=== PATIENT | female | born 1980 | race Hispanic/Latino ===

== ENCOUNTER 2017-08-19 21:10 | Inpatient (IN) | payer BC ==
[~2017-08-19] VITALS: Ht 144.8 cm; Wt 146.0 kg
[2017-08-20] VITALS (13 sets, daily range): BP systolic 85–134; BP diastolic 45–78
[2017-08-20 00:37] LABS: BASOPHIL (%) 0.5 % (0-1); EOSINOPHIL (%) 2.6 % (0-5); EOSINOPHIL COUNT 0.2 K/uL (0-0.3); HEMATOCRIT 33.4 % (36.0-46.0); HEMOGLOBIN 10.8 G/DL (11.9-15.5); IMMATURE GRANULOCYTE (%) 0.7 % (0.0-0.7); LYMPHOCYTE (%) 24.6 % (15-42); LYMPHOCYTE COUNT 2.1 K/uL (1.0-2.8); MCH 29.7 PG (29.0-34.0); MCHC 32.3 G/DL (30.0-36.0); MCV 91.8 FL (83-99); MONOCYTE (%) 5.5 % (3-12); MONOCYTE COUNT 0.5 K/uL (0-0.8); NEUTROPHIL (%) 66.1 % (45-76); NEUTROPHIL COUNT 5.6 K/uL (1.8-6.4); PLATELET COUNT 452 K/uL (156-360); RBC DIS.WIDTH-CV 16.5 % (11.8-14.6); RBC DIS.WIDTH-SD 55.9 % (39-53); RED BLOOD COUNT 3.64 M/uL (3.80-5.20); WHITE BLOOD COUNT 8.5 K/uL (4.1-10.2)
[2017-08-20 00:45] LABS: ALBUMIN 1.9 g/dL (3.2-4.8); CHLORIDE 103 mEq/L (99-109); POTASSIUM 4.3 mEq/L (3.7-5.4); SODIUM 136 mEq/L (136-147)
[2017-08-20 00:47] LABS: GLUCOSE 109 mg/dL (70-99); TOTAL PROTEIN 4.6 g/dL (6.4-8.3)
[2017-08-20 00:49] LABS: TOTAL BILIRUBIN 0.2 mg/dL (0.0-1.0)
[2017-08-20 00:51] LABS: ALKALINE PHOSPHATASE 135 IU/L (3-129); CREATININE 1.6 mg/dL (0.6-1.3); GFR ESTIMATE (CALCULATED) 38 mL/min/
[2017-08-20 00:52] LABS: UREA NITROGEN (BUN) 66 mg/dL (9-23)
[2017-08-20 00:53] LABS: AST (GOT) 15 IU/L (2-34)
[2017-08-20 00:54] LABS: ALT (GPT) 20 IU/L (3-49)
[2017-08-20 02:33] LABS: APPEARANCE CLEAR ((CLEAR)); BILIRUBIN NEGATIVE; BLOOD NEGATIVE; COLOR YELLOW ((YELLOW)); GLUCOSE (STRIP) NEGATIVE; KETONES NEGATIVE; LEUKOCYTES TRACE; NITRITE NEGATIVE; PROTEIN (STRIP) NEGATIVE; SPECIFIC GRAVITY 1.016 (1.000-1.030); UROBILINOGEN 0.2 MG/DL (0.2-1.0)
[2017-08-20 02:37] LABS: BACTERIA NONE SEEN /HPF; EPITHELIAL CELLS NONE SEEN /HPF; MUCUS NONE SEEN /LPF; RED BLOOD CELLS 0-5 /HPF (0-5); UCUL ADDED? NO; WHITE BLOOD CELLS 0-5 /HPF (0-5)
[2017-08-20] MEDS ORDERED: OXYCODONE HCL5 MG PO (11:22)
[2017-08-20] MEDS ORDERED: AMPICILLIN SODIU2 GM IV (11:27)
[2017-08-20] MEDS ORDERED: MAGNESIUM400 M1 PO (11:30)
[2017-08-20] MEDS ORDERED: COLACE100 MG PO (11:31)
[2017-08-20] MEDS ORDERED: SENNA8.6 MG PO (11:32)
[2017-08-20] MEDS ORDERED: PANTOPRAZOLE SO40 MG PO (11:33)
[2017-08-20] MEDS ORDERED: K-DUR20 MEQ PO (11:34)
[2017-08-20] MEDS ORDERED: GABAPENTIN600 MG PO (11:35)
[2017-08-20] MEDS ORDERED: LASIX20 MG/2 ML IV (11:37)
[2017-08-20] MEDS ORDERED: OCEAN NASAL 0.645 ML BOTH NARES (11:37)
[2017-08-20] MEDS ORDERED: ATIVAN1 MG PO (11:38)
[2017-08-20] MEDS ORDERED: OXYCONTIN10 MG PO (11:39)
[2017-08-20] MEDS ORDERED: BISAC-EVAC10 MG PR (11:40)
[2017-08-20] MEDS ORDERED: ALUMINUM H320 MG/5 M PO (11:41)
[2017-08-20] MEDS ORDERED: BENZONATATE100 MG PO (11:44)
[2017-08-20] MEDS ORDERED: ACETAMINOPHEN325 M1 PO ×2 (11:45→11:46)
[2017-08-20] MEDS ORDERED: ASCORBIC ACID500 MG PO (11:47)
[2017-08-20] MEDS ORDERED: ARTIFICIAL TEAR15 M1 BOTH EYES (11:47)
[2017-08-20] MEDS ORDERED: MUCINEX600 MG PO (11:49)
[2017-08-20] MEDS ORDERED: CYANOCOBALAM1000 MCG PO (11:51)
[2017-08-20] MEDS ORDERED: LOVENOX40 MG/0.4 SC (11:53)
[2017-08-20] MEDS ORDERED: FOLIC ACID1 MG PO (11:54)
[2017-08-20] MEDS ORDERED: ALLERGY RELIE15.8 ML BOTH NARES (11:54)
[2017-08-20] MEDS ORDERED: TAB-A-VITE1 EACH PO (11:55)
[2017-08-20] MEDS ORDERED: ONDANSETRON HCL4 MG PO (11:56)
[2017-08-20 15:07] LABS: BASE EXCESS -6.3 mEq/L (-3 to +3); BICARBONATE 17.7 mEq/L (22-26); METHEMOGLOBIN 1.6 % (0-1.5); PCO2 30 mm Hg (35-45); PO2 86 mm Hg (80-100); pH 7.38 (7.35-7.45)
[2017-08-20 15:10] LABS: COMMENTS - BLOOD GASES C+; DEVICE RA; SITE LR; TOTAL RESP RATE 28 resp/min
[2017-08-20 18:33] LABS: BASOPHIL (%) 0.4 % (0-1); BASOPHIL COUNT 0.1 K/uL (0-0.1); EOSINOPHIL (%) 1.7 % (0-5); EOSINOPHIL COUNT 0.2 K/uL (0-0.3); HEMATOCRIT 32.7 % (36.0-46.0); HEMOGLOBIN 10.2 G/DL (11.9-15.5); IMMATURE GRANULOCYTE (%) 0.9 % (0.0-0.7); LYMPHOCYTE (%) 15.2 % (15-42); LYMPHOCYTE COUNT 2.1 K/uL (1.0-2.8); MCH 28.8 PG (29.0-34.0); MCHC 31.2 G/DL (30.0-36.0); MCV 92.4 FL (83-99); MONOCYTE (%) 5.3 % (3-12); MONOCYTE COUNT 0.7 K/uL (0-0.8); NEUTROPHIL (%) 76.5 % (45-76); NEUTROPHIL COUNT 10.7 K/uL (1.8-6.4); RBC DIS.WIDTH-CV 16.7 % (11.8-14.6); RED BLOOD COUNT 3.54 M/uL (3.80-5.20); WHITE BLOOD COUNT 13.9 K/uL (4.1-10.2)
[2017-08-20 18:38] LABS: INTER. NORMALIZED RATIO 1.4
[2017-08-20 18:39] LABS: PLATELET COUNT 624 K/uL (156-360)
[2017-08-20 18:40] LABS: PTT 24.3 SEC (25-37)
[2017-08-20 18:55] LABS: C4 COMPLEMENT 61 MG/DL (10-40)
[2017-08-20 19:29] LABS: THYROTROPIN (TSH) 4.9 MIU/L (0.4-5.5)
[2017-08-20 19:53] LABS: ALBUMIN 1.8 G/DL (3.2-4.8); ALKALINE PHOSPHATASE 105 IU/L (3-129); ALT (GPT) 15 IU/L (3-49); AMYLASE < 10 IU/L (1-118); AST (GOT) 15 IU/L (2-34); C-REACTIVE PROTEIN 76.3 MG/L (0-10); CHLORIDE 109 MEQ/L (99-109); GLUCOSE 102 mg/dL (70-99); LIPASE 10 U/L (1.0-51.0); MAGNESIUM 1.6 mg/dl (1.3-2.7); PHOSPHORUS 2.7 mg/dL (2.5-4.9); SODIUM 139 MEQ/L (136-147); TOTAL BILIRUBIN 0.3 MG/DL (0.0-1.0); TOTAL PROTEIN 5.1 G/DL (6.4-8.3); UREA NITROGEN (BUN) 51 mg/dL (9-23)
[2017-08-20 19:56] LABS: CREATININE 1.1 MG/DL (0.6-1.3); GFR ESTIMATE (CALCULATED) 59 mL/min/; POTASSIUM 3.3 MEQ/L (3.7-5.4)
[2017-08-21] VITALS (27 sets, daily range): BP systolic 76–130; BP diastolic 29–95
[2017-08-21 10:22] LABS: HEMOGLOBIN 10.6 G/DL (11.9-15.5); MCH 29.8 PG (29.0-34.0); MCHC 32.1 G/DL (30.0-36.0); MCV 92.7 FL (83-99); PLATELET COUNT 497 K/uL (156-360); RBC DIS.WIDTH-CV 17.1 % (11.8-14.6); RBC DIS.WIDTH-SD 58.4 % (39-53); RED BLOOD COUNT 3.56 M/uL (3.80-5.20)
[2017-08-21 10:51] LABS: CHLORIDE 111 MEQ/L (99-109); GFR ESTIMATE (CALCULATED) > 59 mL/min/; MAGNESIUM 1.4 mg/dl (1.3-2.7); PHOSPHORUS 2.1 mg/dL (2.5-4.9); POTASSIUM 3.5 MEQ/L (3.7-5.4); SODIUM 139 MEQ/L (136-147); UREA NITROGEN (BUN) 41 mg/dL (9-23)
[2017-08-21 10:58] LABS: GLUCOSE 224 mg/dL (70-99)
[2017-08-21 12:27] LABS: ANTI-DOUBLE STRANDED DNA 7 U/mL (0-99)
[2017-08-22] VITALS (20 sets, daily range): BP systolic 0–135; BP diastolic 0–101
[2017-08-22 05:50] LABS: HEMATOCRIT 27.9 % (36.0-46.0); HEMOGLOBIN 8.7 G/DL (11.9-15.5); MCH 29.5 PG (29.0-34.0); MCHC 31.2 G/DL (30.0-36.0); MCV 94.6 FL (83-99); PLATELET COUNT 367 K/uL (156-360); RBC DIS.WIDTH-CV 17.3 % (11.8-14.6); RED BLOOD COUNT 2.95 M/uL (3.80-5.20); WHITE BLOOD COUNT 6.5 K/uL (4.1-10.2)
[2017-08-22 06:12] LABS: CHLORIDE 113 MEQ/L (99-109); GFR ESTIMATE (CALCULATED) > 59 mL/min/; POTASSIUM 3.7 MEQ/L (3.7-5.4); SODIUM 142 MEQ/L (136-147); UREA NITROGEN (BUN) 35 mg/dL (9-23)
[2017-08-22 06:13] LABS: GLUCOSE 115 mg/dL (70-99)
[2017-08-22 12:16] LABS: DRVVT Mixing Study Interp Not Indicated (()); PTT-LA 36 sec (<=40); dRVVT Screen 42 sec (<=45)
[2017-08-22 18:42] LABS: PROCALCITONIN+ 0.51 ng/mL (<0.10)
[2017-08-23] VITALS: BP 130/77
[2017-08-23 02:00] VITALS: BP 91/61
[2017-08-23 04:00] VITALS: BP 105/74
[2017-08-23 06:00] VITALS: BP 107/78
[2017-08-23 08:00] VITALS: BP 120/91
[2017-08-23 10:00] VITALS: BP 123/88
[2017-08-24 00:08] LABS: SINGLE STRAND DNA ANTIBODY+ <69 U/mL (<230)
[2017-09-01] MEDS ORDERED: REGLAN5 MG PO (11:12)
== END 2017-08-23 13:34 | disposition designated cancer center or children's hospital (05) | DRG 853 ==
LOC: EME 21:10 → EDBD 21:10 → EME 08-20 03:16 → EDOF 08-20 03:16 → CANRESERV 08-20 03:17 → ENRESERV 08-20 03:17 → EDOF 08-20 05:08 → CANRESERV 08-20 05:10 → ENRESERV 08-20 05:10 → EDOF 08-20 08:04 → 4WEST 08-20 10:49 → EDOF 08-20 10:49 → ENRESERV 08-20 10:50 → EDOF 08-20 11:17 → ENRESERV 08-20 11:48 → 4WEST 08-20 13:23
PROVIDERS: Emergency Medicine; Internal Medicine; Internal Medicine Critical Care Medicine; Obstetrics & Gynecology; Specialist
PROC: 02HV33Z Insertion of Infusion Device into Superior Vena Cava, Percutaneous Approach (ICD-10-PCS; principal; 2017-08-19)
PROC: 05PY03Z Removal of Infusion Device from Upper Vein, Open Approach (ICD-10-PCS; 2017-08-21)
DX: A41.9 Sepsis, unspecified organism (principal); M32.9 Systemic lupus erythematosus, unspecified; E66.01 Morbid (severe) obesity due to excess calories; M86.9 Osteomyelitis, unspecified; L03.116 Cellulitis of left lower limb; R65.21 Severe sepsis with septic shock; J18.9 Pneumonia, unspecified organism; N39.0 Urinary tract infection, site not specified; I95.9 Hypotension, unspecified; F32.9 Major depressive disorder, single episode, unspecified; I12.9 Hypertensive chronic kidney disease with stage 1 through stage 4 chronic kidney disease, or unspecified chronic kidney disease; Y84.8 Other medical procedures as the cause of abnormal reaction of the patient, or of later complication, without mention of misadventure at the time of the procedure; N18.9 Chronic kidney disease, unspecified; L93.0 Discoid lupus erythematosus; G82.20 Paraplegia, unspecified; R00.0 Tachycardia, unspecified; R73.9 Hyperglycemia, unspecified; L89.319 Pressure ulcer of right buttock, unspecified stage; L89.159 Pressure ulcer of sacral region, unspecified stage; I31.3 Pericardial effusion (noninflammatory); D64.9 Anemia, unspecified; Z68.44 Body mass index [BMI] 60.0-69.9, adult; Z86.14 Personal history of Methicillin resistant Staphylococcus aureus infection; Z90.49 Acquired absence of other specified parts of digestive tract; Z79.82 Long term (current) use of aspirin; Z87.01 Personal history of pneumonia (recurrent); L89.154 Pressure ulcer of sacral region, stage 4
CPT/HCPCS: 36600; 71045; 74176; 80048; 80053; 80202; 81003; 82150; 82533 91; 82803; 82948; 83605; 83690; 83735; 84100; 84145 90; 84443; 85025; 85025 91; 85027; 85610; 85613 90; 85730; 85730 90; 86038; 86140; 86147 90; 86160; 86226 90; 86235; 87040; 87077; 87081; 87641; 99281; 99285; C1751; C9113; J0610; J0692; J1450; J1644; J1720; J1815; J2270; J2543; J3010; J3370; J3475; J3480; J7030; J7042; J7050; S0030

== ENCOUNTER 2017-08-29 10:14 | Emergency (ER) | payer BC ==
[~2017-08-29] VITALS: Ht 144.8 cm; Wt 146.0 kg
[~2017-08-29 10:14] MED LIST: ACETAMINOPHEN325 M1 PO; ALLERGY RELIE15.8 ML BOTH NARES; ALUMINUM H320 MG/5 M PO; AMPICILLIN SODIU2 GM IV; ARTIFICIAL TEAR15 M1 BOTH EYES; ASCORBIC ACID500 MG PO; ATIVAN1 MG PO; BENZONATATE100 MG PO; BISAC-EVAC10 MG PR; COLACE100 MG PO; CYANOCOBALAM1000 MCG PO; FOLIC ACID1 MG PO; GABAPENTIN600 MG PO; K-DUR20 MEQ PO; LASIX20 MG/2 ML IV; LOVENOX40 MG/0.4 SC; MAGNESIUM400 M1 PO; MUCINEX600 MG PO; OCEAN NASAL 0.645 ML BOTH NARES; ONDANSETRON HCL4 MG PO; OXYCODONE HCL5 MG PO; OXYCONTIN10 MG PO; PANTOPRAZOLE SO40 MG PO; SENNA8.6 MG PO; TAB-A-VITE1 EACH PO
[2017-08-29 11:04] LABS: APPEARANCE CLEAR ((CLEAR)); BILIRUBIN NEGATIVE; BLOOD NEGATIVE; COLOR STRAW ((YELLOW)); GLUCOSE (STRIP) NEGATIVE; KETONES NEGATIVE; LEUKOCYTES SMALL; NITRITE NEGATIVE; PROTEIN (STRIP) NEGATIVE; SPECIFIC GRAVITY 1.008 (1.000-1.030); UROBILINOGEN 0.2 MG/DL (0.2-1.0)
[2017-08-29 11:26] LABS: BACTERIA RARE /HPF; EPITHELIAL CELLS RARE /HPF; HYALINE CASTS 0-5 /LPF; MUCUS TRACE /LPF; RED BLOOD CELLS 0-5 /HPF (0-5); UCUL ADDED? YES
[2017-08-29 11:49] LABS: BASOPHIL (%) 0.2 % (0-1); EOSINOPHIL (%) 0.9 % (0-5); EOSINOPHIL COUNT 0.1 K/uL (0-0.3); HEMATOCRIT 31.7 % (36.0-46.0); HEMOGLOBIN 10.3 G/DL (11.9-15.5); IMMATURE GRANULOCYTE (%) 0.6 % (0.0-0.7); LYMPHOCYTE (%) 12.9 % (15-42); LYMPHOCYTE COUNT 1.4 K/uL (1.0-2.8); MCH 29.7 PG (29.0-34.0); MCHC 32.5 G/DL (30.0-36.0); MCV 91.4 FL (83-99); MONOCYTE (%) 5.3 % (3-12); MONOCYTE COUNT 0.6 K/uL (0-0.8); NEUTROPHIL (%) 80.1 % (45-76); NEUTROPHIL COUNT 8.5 K/uL (1.8-6.4); PLATELET COUNT 465 K/uL (156-360); RBC DIS.WIDTH-CV 18.6 % (11.8-14.6); RBC DIS.WIDTH-SD 60.7 % (39-53); RED BLOOD COUNT 3.47 M/uL (3.80-5.20); WHITE BLOOD COUNT 10.6 K/uL (4.1-10.2)
[2017-08-29 11:58] LABS: CHLORIDE 109 mEq/L (99-109); POTASSIUM 2.5 mEq/L (3.7-5.4); SODIUM 141 mEq/L (136-147)
[2017-08-29 12:00] LABS: GLUCOSE 130 mg/dL (70-99); TOTAL PROTEIN 4.7 g/dL (6.4-8.3)
[2017-08-29 12:02] LABS: TOTAL BILIRUBIN 0.2 mg/dL (0.0-1.0)
[2017-08-29 12:03] LABS: ALKALINE PHOSPHATASE 102 IU/L (3-129)
[2017-08-29 12:04] LABS: CREATININE 0.8 mg/dL (0.6-1.3); GFR ESTIMATE (CALCULATED) > 59 mL/min/
[2017-08-29 12:05] LABS: AST (GOT) 17 IU/L (2-34); UREA NITROGEN (BUN) 28 mg/dL (9-23)
[2017-08-29 12:07] LABS: ALT (GPT) 15 IU/L (3-49); LIPASE 15 U/L (1.0-51.0)
[2017-08-29] MEDS ORDERED: CEFTRIAXONE2 G1 IV (12:45)
[2017-08-29] MEDS ORDERED: FOLIC ACID1 MG PO (12:49)
[2017-08-29] MEDS ORDERED: NARCAN4 MG NS (12:52)
[2017-08-29] MEDS ORDERED: NYSTATIN100000 UN1 PO (12:53)
[2017-08-29] MEDS ORDERED: TAB-A-VITE1 EACH PO (12:54)
[2017-08-29] MEDS ORDERED: VANCOMYCIN1 GM/150 M IV (12:55)
[2017-08-29] MEDS ORDERED: VITAMIN B-12500 MC5 SL (12:56)
[2017-08-29] MEDS ORDERED: ASCORBIC ACID500 M3 PO (12:56)
[2017-08-29] MEDS ORDERED: ALBUTEROL2.5 MG/3 M IH (13:01)
[2017-08-29] MEDS ORDERED: ADVAIR 250/501 DISK IH (13:02)
[2017-08-29 18:39] VITALS: BP 117/63
[2017-09-01] MEDS ORDERED: REGLAN5 MG PO (11:12)
== END 2017-08-29 19:21 ==
LOC: EME 10:14
PROVIDERS: Emergency Medicine
DX: E87.6 Hypokalemia (principal); L89.109 Pressure ulcer of unspecified part of back, unspecified stage; J45.909 Unspecified asthma, uncomplicated; I12.9 Hypertensive chronic kidney disease with stage 1 through stage 4 chronic kidney disease, or unspecified chronic kidney disease; N18.9 Chronic kidney disease, unspecified; E66.01 Morbid (severe) obesity due to excess calories; Z68.44 Body mass index [BMI] 60.0-69.9, adult; Z86.14 Personal history of Methicillin resistant Staphylococcus aureus infection; Z90.49 Acquired absence of other specified parts of digestive tract
CPT/HCPCS: 71045; 80053; 81003; 83605; 83690; 85025; 87040; 87086; 93005; 99281; 99285; J3480; J7050

== ENCOUNTER 2017-09-01 12:45 | Emergency (ER) | payer BC ==
[~2017-09-01] VITALS: Ht 157.5 cm; Wt 153.0 kg
[~2017-09-01 12:45] MED LIST changes: +ADVAIR 250/501 DISK IH; +ALBUTEROL2.5 MG/3 M IH; +ASCORBIC ACID500 M3 PO; +CEFTRIAXONE2 G1 IV; +NARCAN4 MG NS; +NYSTATIN100000 UN1 PO; +REGLAN5 MG PO; +VANCOMYCIN1 GM/150 M IV; +VITAMIN B-12500 MC5 SL
[2017-09-01 14:48] LABS: INTER. NORMALIZED RATIO 1.6
[2017-09-01 14:51] LABS: PTT 30.5 SEC (25-37)
[2017-09-01 14:55] LABS: CHLORIDE 108 mEq/L (99-109); SODIUM 136 mEq/L (136-147)
[2017-09-01 14:57] LABS: BASOPHIL (%) 0.8 % (0-1); BASOPHIL COUNT 0.1 K/uL (0-0.1); EOSINOPHIL (%) 0.3 % (0-5); HEMATOCRIT 32.1 % (36.0-46.0); HEMOGLOBIN 10.6 G/DL (11.9-15.5); IMMATURE GRANULOCYTE (%) 0.4 % (0.0-0.7); LYMPHOCYTE (%) 16.6 % (15-42); LYMPHOCYTE COUNT 1.7 K/uL (1.0-2.8); MCH 29.6 PG (29.0-34.0); MCV 89.7 FL (83-99); MONOCYTE (%) 6.9 % (3-12); MONOCYTE COUNT 0.7 K/uL (0-0.8); NEUTROPHIL COUNT 7.6 K/uL (1.8-6.4); PLATELET COUNT 523 K/uL (156-360); RBC DIS.WIDTH-CV 18.5 % (11.8-14.6); RBC DIS.WIDTH-SD 61.1 % (39-53); RED BLOOD COUNT 3.58 M/uL (3.80-5.20); WHITE BLOOD COUNT 10.1 K/uL (4.1-10.2)
[2017-09-01 14:58] LABS: GLUCOSE 100 mg/dL (70-99)
[2017-09-01 14:59] LABS: TOTAL BILIRUBIN 0.2 mg/dL (0.0-1.0)
[2017-09-01 15:01] LABS: ALKALINE PHOSPHATASE 109 IU/L (3-129); CREATININE 1.1 mg/dL (0.6-1.3); GFR ESTIMATE (CALCULATED) 59 mL/min/
[2017-09-01 15:02] LABS: POTASSIUM 3.5 mEq/L (3.7-5.4); UREA NITROGEN (BUN) 31 mg/dL (9-23)
[2017-09-01 15:03] LABS: DIRECT BILIRUBIN 0.2 mg/dL (0.0-0.3)
[2017-09-01 15:04] LABS: ALT (GPT) 21 IU/L (3-49); AST (GOT) 31 IU/L (2-34)
[2017-09-01 15:05] LABS: LIPASE 14 U/L (1.0-51.0)
[2017-09-01 15:06] LABS: TROP-I INTERPRETATION NEGATIVE; TROPONIN-I < 0.01 ng/mL (0.0-0.30)
[2017-09-01 16:15] LABS: APPEARANCE SL.HAZY ((CLEAR)); BILIRUBIN NEGATIVE; BLOOD NEGATIVE; COLOR YELLOW ((YELLOW)); GLUCOSE (STRIP) NEGATIVE; KETONES NEGATIVE; LEUKOCYTES MODERATE; NITRITE NEGATIVE; PROTEIN (STRIP) NEGATIVE; SPECIFIC GRAVITY 1.013 (1.000-1.030); UROBILINOGEN 0.2 MG/DL (0.2-1.0)
[2017-09-01 16:37] LABS: AMORPHOUS URATES CRYSTALS 1+; BACTERIA 1+ /HPF; EPITHELIAL CELLS 1+ /HPF; MUCUS NONE SEEN /LPF; RED BLOOD CELLS 0-5 /HPF (0-5); UCUL ADDED? YES; WHITE BLOOD CELLS 30-40 /HPF (0-5)
[2017-09-01 20:23] VITALS: BP 101/58
== END 2017-09-01 20:28 ==
LOC: EME 12:45
PROVIDERS: Nurse Practitioner Family
DX: M25.551 Pain in right hip (principal); G89.29 Other chronic pain; R00.0 Tachycardia, unspecified; R94.31 Abnormal electrocardiogram [ECG] [EKG]; J98.11 Atelectasis; Z91.14 Patient's other noncompliance with medication regimen; J45.909 Unspecified asthma, uncomplicated; I12.9 Hypertensive chronic kidney disease with stage 1 through stage 4 chronic kidney disease, or unspecified chronic kidney disease; N18.9 Chronic kidney disease, unspecified; E66.01 Morbid (severe) obesity due to excess calories; Z79.891 Long term (current) use of opiate analgesic; Z86.14 Personal history of Methicillin resistant Staphylococcus aureus infection; Z86.19 Personal history of other infectious and parasitic diseases; Z90.49 Acquired absence of other specified parts of digestive tract
CPT/HCPCS: 71045; 73502; 80053; 81003; 82248; 83605; 83690; 84484; 85025; 85610; 85730; 87040; 87086; 93005; 99281; 99285; J1885; J3010; J7030

== ENCOUNTER 2017-09-02 01:37 | Inpatient (IN) | payer BC, OTHER ==
[2017-09-02] VITALS (27 sets, daily range): BP systolic 58–130; BP diastolic 32–68
[~2017-09-02] VITALS: Ht 157.5 cm; Wt 146.0 kg
[2017-09-02 02:24] LABS: BASOPHIL (%) 0.8 % (0-1); BASOPHIL COUNT 0.1 K/uL (0-0.1); EOSINOPHIL (%) 0.9 % (0-5); EOSINOPHIL COUNT 0.1 K/uL (0-0.3); HEMATOCRIT 30.5 % (36.0-46.0); HEMOGLOBIN 9.9 G/DL (11.9-15.5); IMMATURE GRANULOCYTE (%) 0.3 % (0.0-0.7); LYMPHOCYTE (%) 24.3 % (15-42); LYMPHOCYTE COUNT 1.9 K/uL (1.0-2.8); MCH 29.4 PG (29.0-34.0); MCHC 32.5 G/DL (30.0-36.0); MCV 90.5 FL (83-99); MONOCYTE (%) 7.3 % (3-12); MONOCYTE COUNT 0.6 K/uL (0-0.8); NEUTROPHIL (%) 66.4 % (45-76); NEUTROPHIL COUNT 5.1 K/uL (1.8-6.4); PLATELET COUNT 403 K/uL (156-360); RBC DIS.WIDTH-CV 18.5 % (11.8-14.6); RBC DIS.WIDTH-SD 61.4 % (39-53); RED BLOOD COUNT 3.37 M/uL (3.80-5.20); WHITE BLOOD COUNT 7.7 K/uL (4.1-10.2)
[2017-09-02 02:29] LABS: INTER. NORMALIZED RATIO 1.6
[2017-09-02 02:32] LABS: PTT 34.1 SEC (25-37)
[2017-09-02 02:36] LABS: ALBUMIN 1.9 g/dL (3.2-4.8); CHLORIDE 109 mEq/L (99-109); POTASSIUM 3.5 mEq/L (3.7-5.4); SODIUM 138 mEq/L (136-147)
[2017-09-02 02:39] LABS: GLUCOSE 80 mg/dL (70-99); TOTAL PROTEIN 4.4 g/dL (6.4-8.3)
[2017-09-02 02:41] LABS: TOTAL BILIRUBIN 0.2 mg/dL (0.0-1.0)
[2017-09-02 02:42] LABS: ALKALINE PHOSPHATASE 104 IU/L (3-129); GFR ESTIMATE (CALCULATED) > 59 mL/min/
[2017-09-02 02:44] LABS: AST (GOT) 31 IU/L (2-34); UREA NITROGEN (BUN) 31 mg/dL (9-23)
[2017-09-02 02:45] LABS: ALT (GPT) 22 IU/L (3-49); TROP-I INTERPRETATION NEGATIVE; TROPONIN-I < 0.01 ng/mL (0.0-0.30)
[2017-09-02 03:18] LABS: APPEARANCE CLOUDY ((CLEAR)); BILIRUBIN NEGATIVE; BLOOD SMALL; COLOR YELLOW ((YELLOW)); GLUCOSE (STRIP) NEGATIVE; KETONES 5; LEUKOCYTES LARGE; NITRITE NEGATIVE; PROTEIN (STRIP) 30; SPECIFIC GRAVITY 1.021 (1.000-1.030); UROBILINOGEN 0.2 MG/DL (0.2-1.0)
[2017-09-02 03:33] LABS: RED BLOOD CELLS 0-5 /HPF (0-5); WHITE BLOOD CELLS 30-40 /HPF (0-5)
[2017-09-02 03:34] LABS: BACTERIA 1+ /HPF; EPITHELIAL CELLS RARE /HPF; MUCUS NONE SEEN /LPF; OTHER BUDDING YEAST; UCUL ADDED? YES; URINE COMMENT BUDDING YEAST
[2017-09-02 20:33] LABS: BASOPHIL (%) 0.9 % (0-1); BASOPHIL COUNT 0.1 K/uL (0-0.1); EOSINOPHIL (%) 2.9 % (0-5); EOSINOPHIL COUNT 0.2 K/uL (0-0.3); IMMATURE GRANULOCYTE (%) 0.3 % (0.0-0.7); LYMPHOCYTE (%) 21.9 % (15-42); LYMPHOCYTE COUNT 1.5 K/uL (1.0-2.8); MCH 28.8 PG (29.0-34.0); MCV 92.7 FL (83-99); MONOCYTE (%) 6.3 % (3-12); MONOCYTE COUNT 0.4 K/uL (0-0.8); NEUTROPHIL (%) 67.7 % (45-76); NEUTROPHIL COUNT 4.5 K/uL (1.8-6.4); PLATELET COUNT 302 K/uL (156-360); RBC DIS.WIDTH-CV 18.6 % (11.8-14.6); RBC DIS.WIDTH-SD 63.2 % (39-53); RED BLOOD COUNT 3.13 M/uL (3.80-5.20); WHITE BLOOD COUNT 6.6 K/uL (4.1-10.2)
[2017-09-02 20:50] LABS: INTER. NORMALIZED RATIO 1.6
[2017-09-02 20:52] LABS: PTT 24.4 SEC (25-37)
[2017-09-02 20:56] LABS: CHLORIDE 109 MEQ/L (99-109); CREATININE 1.1 MG/DL (0.6-1.3); GFR ESTIMATE (CALCULATED) 59 mL/min/; GLUCOSE 97 mg/dL (70-99); MAGNESIUM 1.3 mg/dl (1.3-2.7); PHOSPHORUS 2.8 mg/dL (2.5-4.9); POTASSIUM 3.4 MEQ/L (3.7-5.4); SODIUM 136 MEQ/L (136-147); UREA NITROGEN (BUN) 27 mg/dL (9-23)
[2017-09-03] VITALS (29 sets, daily range): BP systolic 81–126; BP diastolic 40–73
[2017-09-03 05:24] LABS: BASOPHIL COUNT 0.1 K/uL (0-0.1); EOSINOPHIL (%) 3.9 % (0-5); EOSINOPHIL COUNT 0.2 K/uL (0-0.3); HEMATOCRIT 24.7 % (36.0-46.0); HEMOGLOBIN 7.7 G/DL (11.9-15.5); IMMATURE GRANULOCYTE (%) 0.4 % (0.0-0.7); LYMPHOCYTE (%) 18.9 % (15-42); LYMPHOCYTE COUNT 0.9 K/uL (1.0-2.8); MCH 28.5 PG (29.0-34.0); MCHC 31.2 G/DL (30.0-36.0); MCV 91.5 FL (83-99); MONOCYTE (%) 5.9 % (3-12); MONOCYTE COUNT 0.3 K/uL (0-0.8); NEUTROPHIL (%) 69.9 % (45-76); NEUTROPHIL COUNT 3.5 K/uL (1.8-6.4); PLATELET COUNT 273 K/uL (156-360); RBC DIS.WIDTH-CV 18.6 % (11.8-14.6); RBC DIS.WIDTH-SD 62.3 % (39-53); WHITE BLOOD COUNT 4.9 K/uL (4.1-10.2)
[2017-09-03 06:23] LABS: CHLORIDE 108 MEQ/L (99-109); GFR ESTIMATE (CALCULATED) > 59 mL/min/; GLUCOSE 81 mg/dL (70-99); POTASSIUM 3.1 MEQ/L (3.7-5.4); SODIUM 137 MEQ/L (136-147); UREA NITROGEN (BUN) 27 mg/dL (9-23)
[2017-09-03 07:29] LABS: MAGNESIUM 1.2 mg/dl (1.3-2.7); PHOSPHORUS 2.9 mg/dL (2.5-4.9)
[2017-09-03 10:42] LABS: VANCOMYCIN, TROUGH 25.5 MCG/ML (10-20)
[2017-09-03 12:30] LABS: UR CREATININE CONCENTRATION 111.1 MG/DL
[2017-09-03 13:00] LABS: HIGH-SENS C-REACTIVE PROTEIN 3.39 MG/DL (0.02-0.20)
[2017-09-03 14:03] LABS: BASE EXCESS -7.2 mEq/L (-3 to +3); BICARBONATE 17.8 mEq/L (22-26); CARBOXY HGB 1.5 % (0-5); PCO2 33 mm Hg (35-45); PO2 36 mm Hg (80-100); pH 7.34 (7.35-7.45)
[2017-09-03 14:04] LABS: SITE CENTRAL LINE
[2017-09-04] VITALS (10 sets, daily range): BP systolic 74–125; BP diastolic 41–81
[2017-09-04 06:27] LABS: VANCOMYCIN, TROUGH 18.1 MCG/ML (10-20)
[2017-09-04 11:13] LABS: BASOPHIL (%) 0.4 % (0-1); EOSINOPHIL (%) 0 % (0-5); HEMATOCRIT 26.4 % (36.0-46.0); HEMOGLOBIN 8.4 G/DL (11.9-15.5); LYMPHOCYTE (%) 14.3 % (15-42); LYMPHOCYTE COUNT 0.4 K/uL (1.0-2.8); MCH 29.4 PG (29.0-34.0); MCHC 31.8 G/DL (30.0-36.0); MCV 92.3 FL (83-99); MONOCYTE (%) 2.9 % (3-12); MONOCYTE COUNT 0.1 K/uL (0-0.8); NEUTROPHIL (%) 82.4 % (45-76); NEUTROPHIL COUNT 2.3 K/uL (1.8-6.4); PLATELET COUNT 244 K/uL (156-360); RBC DIS.WIDTH-CV 18.5 % (11.8-14.6); RED BLOOD COUNT 2.86 M/uL (3.80-5.20); WHITE BLOOD COUNT 2.8 K/uL (4.1-10.2)
[2017-09-04 11:18] LABS: INTER. NORMALIZED RATIO 1.7
[2017-09-04 11:21] LABS: PTT 35.2 SEC (25-37)
[2017-09-04 11:55] LABS: ALBUMIN 2.1 G/DL (3.2-4.8); ALKALINE PHOSPHATASE 65 IU/L (3-129); ALT (GPT) 14 IU/L (3-49); AST (GOT) 16 IU/L (2-34); CHLORIDE 113 MEQ/L (99-109); CREATININE 0.8 MG/DL (0.6-1.3); GFR ESTIMATE (CALCULATED) > 59 mL/min/; GLUCOSE 144 mg/dL (70-99); MAGNESIUM 1.3 mg/dl (1.3-2.7); PHOSPHORUS 2.7 mg/dL (2.5-4.9); POTASSIUM 3.9 MEQ/L (3.7-5.4); SODIUM 139 MEQ/L (136-147); TOTAL BILIRUBIN 0.3 MG/DL (0.0-1.0); TOTAL PROTEIN 4.3 G/DL (6.4-8.3); UREA NITROGEN (BUN) 23 mg/dL (9-23)
[2017-09-05] VITALS: BP 118/70
[2017-09-05 06:46] LABS: BASOPHIL (%) 0.3 % (0-1); EOSINOPHIL (%) 0 % (0-5); HEMATOCRIT 24.9 % (36.0-46.0); HEMOGLOBIN 7.9 G/DL (11.9-15.5); IMMATURE GRANULOCYTE (%) 0.3 % (0.0-0.7); LYMPHOCYTE (%) 19.7 % (15-42); LYMPHOCYTE COUNT 0.7 K/uL (1.0-2.8); MCH 29.4 PG (29.0-34.0); MCHC 31.7 G/DL (30.0-36.0); MCV 92.6 FL (83-99); MONOCYTE (%) 4.8 % (3-12); MONOCYTE COUNT 0.2 K/uL (0-0.8); NEUTROPHIL (%) 74.9 % (45-76); NEUTROPHIL COUNT 2.8 K/uL (1.8-6.4); PLATELET COUNT 217 K/uL (156-360); RBC DIS.WIDTH-CV 18.8 % (11.8-14.6); RBC DIS.WIDTH-SD 63.7 % (39-53); RED BLOOD COUNT 2.69 M/uL (3.80-5.20); WHITE BLOOD COUNT 3.8 K/uL (4.1-10.2)
[2017-09-05 07:23] LABS: ALBUMIN 1.9 G/DL (3.2-4.8); ALKALINE PHOSPHATASE 59 IU/L (3-129); ALT (GPT) 13 IU/L (3-49); AST (GOT) 16 IU/L (2-34); CHLORIDE 115 MEQ/L (99-109); GFR ESTIMATE (CALCULATED) > 59 mL/min/; GLUCOSE 141 mg/dL (70-99); MAGNESIUM 1.3 mg/dl (1.3-2.7); PHOSPHORUS 2.7 mg/dL (2.5-4.9); POTASSIUM 3.9 MEQ/L (3.7-5.4); SODIUM 140 MEQ/L (136-147); UREA NITROGEN (BUN) 22 mg/dL (9-23); VANCOMYCIN, TROUGH 13.8 MCG/ML (10-20)
[2017-09-05 07:24] LABS: TOTAL BILIRUBIN 0.2 MG/DL (0.0-1.0)
[2017-09-05 08:00] VITALS: BP 149/86
[2017-09-05 08:11] LABS: CARBOXY HGB 1.2 % (0-5); METHEMOGLOBIN 1.7 % (0-1.5); PCO2 < 19 mm Hg (35-45); PO2 109 mm Hg (80-100); SITE ALINE; TOTAL RESP RATE 32 resp/min; pH 7.34 (7.35-7.45)
[2017-09-05 09:35] LABS: FERRITIN 262 NG/ML (10-291)
[2017-09-05 09:46] LABS: FOLIC ACID (FOLATE) > 22.0 NG/ML (5.0-22.0)
[2017-09-05 10:02] LABS: IRON 71 MCG/DL (35-150)
[2017-09-05 10:42] LABS: ANTI-DOUBLE STRANDED DNA 7 U/mL (0-99); HISTONE ANTIBODY 26 U/mL (0-99); SCL-70 (SCLERODERMA) ANTIBODY 7 U/mL (0-99)
[2017-09-05 10:47] LABS: TRANSFERRIN (TIBC) < 75 mg/dL (215-380); TRANSFERRIN SATUR. 90 % (20-55)
[2017-09-05 12:00] VITALS: BP 161/106
[2017-09-05 15:11] LABS: C-REACTIVE PROTEIN 18.1 MG/L (0-10)
[2017-09-05 20:00] VITALS: BP 107/81
[2017-09-05 20:52] LABS: Neutrophil Cytoplasmic Aby Negative (Negative)
[2017-09-05 22:00] VITALS: BP 110/68
[2017-09-05 22:45] LABS: DRVVT Mixing Study Interp Not Indicated (()); dRVVT Screen 35 sec (<=45)
[2017-09-05 22:59] LABS: ADD PTT REFLEX? Y; PTT-LA 46 sec (<=40)
[2017-09-06] VITALS (12 sets, daily range): BP systolic 102–158; BP diastolic 56–96
[2017-09-06 07:37] LABS: BASOPHIL (%) 0 % (0-1); EOSINOPHIL (%) 0 % (0-5); HEMATOCRIT 29.3 % (36.0-46.0); HEMOGLOBIN 9.6 G/DL (11.9-15.5); IMMATURE GRANULOCYTE (%) 0.3 % (0.0-0.7); LYMPHOCYTE COUNT 1.1 K/uL (1.0-2.8); MCH 29.4 PG (29.0-34.0); MCHC 32.8 G/DL (30.0-36.0); MCV 89.9 FL (83-99); MONOCYTE (%) 5.7 % (3-12); MONOCYTE COUNT 0.3 K/uL (0-0.8); NEUTROPHIL COUNT 4.5 K/uL (1.8-6.4); PLATELET COUNT 264 K/uL (156-360); RBC DIS.WIDTH-CV 18.4 % (11.8-14.6); RBC DIS.WIDTH-SD 60.9 % (39-53); WHITE BLOOD COUNT 5.9 K/uL (4.1-10.2)
[2017-09-06 07:57] LABS: RED BLOOD COUNT 3.26 M/uL (3.80-5.20)
[2017-09-06 08:03] LABS: ALBUMIN 2.6 G/DL (3.2-4.8); ALKALINE PHOSPHATASE 66 IU/L (3-129); ALT (GPT) 18 IU/L (3-49); AST (GOT) 19 IU/L (2-34); CHLORIDE 110 MEQ/L (99-109); GFR ESTIMATE (CALCULATED) > 59 mL/min/; GLUCOSE 148 mg/dL (70-99); POTASSIUM 3.8 MEQ/L (3.7-5.4); SODIUM 140 MEQ/L (136-147); UREA NITROGEN (BUN) 20 mg/dL (9-23)
[2017-09-06 08:04] LABS: MAGNESIUM 1.6 mg/dl (1.3-2.7); TOTAL BILIRUBIN 0.4 MG/DL (0.0-1.0); TOTAL PROTEIN 4.9 G/DL (6.4-8.3)
[2017-09-06 18:13] LABS: MITOCHONDRIAL (M2) ANTIBODIES+ <=20.0 U (<=20.0)
[2017-09-06 18:54] LABS: ANTI-CYCLC CITRULLINATED PEPT+ <16 Units (<20); ANTI-SMOOTH MUSCLE (Actin)+ <20 U (<20)
[2017-09-06 20:16] LABS: MYELOPEROXIDASE ANTIBODY (MPO) <1.0 AI (<1.0); PROTEINASE-3 ANTIBODY+ <1.0 AI (<1.0)
[2017-09-07] VITALS (19 sets, daily range): BP systolic 79–129; BP diastolic 48–102
[2017-09-07 06:56] LABS: BASOPHIL (%) 0 % (0-1); EOSINOPHIL (%) 0 % (0-5); HEMATOCRIT 27.8 % (36.0-46.0); HEMOGLOBIN 9.1 G/DL (11.9-15.5); IMMATURE GRANULOCYTE (%) 0.2 % (0.0-0.7); LYMPHOCYTE (%) 18.1 % (15-42); LYMPHOCYTE COUNT 0.7 K/uL (1.0-2.8); MCH 29.4 PG (29.0-34.0); MCHC 32.7 G/DL (30.0-36.0); MCV 89.7 FL (83-99); MONOCYTE COUNT 0.2 K/uL (0-0.8); NEUTROPHIL (%) 77.7 % (45-76); NEUTROPHIL COUNT 3.1 K/uL (1.8-6.4); PLATELET COUNT 216 K/uL (156-360); RBC DIS.WIDTH-CV 18.3 % (11.8-14.6); RBC DIS.WIDTH-SD 60.1 % (39-53)
[2017-09-07 07:23] LABS: ALBUMIN 2.7 G/DL (3.2-4.8); ALKALINE PHOSPHATASE 61 IU/L (3-129); ALT (GPT) 17 IU/L (3-49); AST (GOT) 18 IU/L (2-34); CHLORIDE 104 MEQ/L (99-109); GFR ESTIMATE (CALCULATED) > 59 mL/min/; GLUCOSE 175 mg/dL (70-99); MAGNESIUM 1.5 mg/dl (1.3-2.7); PHOSPHORUS 1.9 mg/dL (2.5-4.9); POTASSIUM 3.3 MEQ/L (3.7-5.4); SODIUM 140 MEQ/L (136-147); TOTAL BILIRUBIN 0.4 MG/DL (0.0-1.0); TOTAL PROTEIN 4.8 G/DL (6.4-8.3); UREA NITROGEN (BUN) 18 mg/dL (9-23)
[2017-09-08] VITALS (17 sets, daily range): BP systolic 92–137; BP diastolic 52–92
[2017-09-08 06:47] LABS: BASOPHIL (%) 0 % (0-1); EOSINOPHIL (%) 0 % (0-5); HEMATOCRIT 25.9 % (36.0-46.0); HEMOGLOBIN 8.3 G/DL (11.9-15.5); IMMATURE GRANULOCYTE (%) 0.7 % (0.0-0.7); LYMPHOCYTE (%) 16.6 % (15-42); LYMPHOCYTE COUNT 0.7 K/uL (1.0-2.8); MCH 28.7 PG (29.0-34.0); MCV 89.6 FL (83-99); MONOCYTE (%) 4.1 % (3-12); MONOCYTE COUNT 0.2 K/uL (0-0.8); NEUTROPHIL (%) 78.6 % (45-76); NEUTROPHIL COUNT 3.3 K/uL (1.8-6.4); PLATELET COUNT 189 K/uL (156-360); RBC DIS.WIDTH-CV 17.8 % (11.8-14.6); RBC DIS.WIDTH-SD 59.4 % (39-53); RED BLOOD COUNT 2.89 M/uL (3.80-5.20); WHITE BLOOD COUNT 4.2 K/uL (4.1-10.2)
[2017-09-08 07:10] LABS: ALBUMIN 2.7 G/DL (3.2-4.8); ALKALINE PHOSPHATASE 52 IU/L (3-129); ALT (GPT) 17 IU/L (3-49); AST (GOT) 19 IU/L (2-34); CHLORIDE 104 MEQ/L (99-109); CREATININE 1.2 MG/DL (0.6-1.3); GFR ESTIMATE (CALCULATED) 53 mL/min/; GLUCOSE 133 mg/dL (70-99); MAGNESIUM 1.4 mg/dl (1.3-2.7); PHOSPHORUS 1.7 mg/dL (2.5-4.9); POTASSIUM 2.9 MEQ/L (3.7-5.4); SODIUM 139 MEQ/L (136-147); TOTAL PROTEIN 4.7 G/DL (6.4-8.3); UREA NITROGEN (BUN) 17 mg/dL (9-23)
[2017-09-08 07:11] LABS: TOTAL BILIRUBIN 0.5 MG/DL (0.0-1.0)
[2017-09-08 10:02] LABS: INTER. NORMALIZED RATIO 1.7
[2017-09-08 10:04] LABS: PTT 32.8 SEC (25-37)
[2017-09-09 00:44] VITALS: BP 112/64
[2017-09-09 05:56] VITALS: BP 112/55
[2017-09-09 11:35] LABS: HEMATOCRIT 22.7 % (36.0-46.0); HEMOGLOBIN 7.5 G/DL (11.9-15.5); MCH 29.8 PG (29.0-34.0); MCV 90.1 FL (83-99); PLATELET COUNT 157 K/uL (156-360); RBC DIS.WIDTH-CV 18.3 % (11.8-14.6); RBC DIS.WIDTH-SD 59.7 % (39-53); RED BLOOD COUNT 2.52 M/uL (3.80-5.20)
[2017-09-09 11:49] LABS: CHLORIDE 106 MEQ/L (99-109); CREATININE 1.5 MG/DL (0.6-1.3); GFR ESTIMATE (CALCULATED) 41 mL/min/; GLUCOSE 145 mg/dL (70-99); MAGNESIUM 1.4 mg/dl (1.3-2.7); POTASSIUM 2.9 MEQ/L (3.7-5.4); SODIUM 143 MEQ/L (136-147); UREA NITROGEN (BUN) 20 mg/dL (9-23)
[2017-09-09 15:05] VITALS: BP 117/72
[2017-09-09 19:42] VITALS: BP 121/70
[2017-09-10 07:43] LABS: CHLORIDE 107 MEQ/L (99-109); CREATININE 1.8 MG/DL (0.6-1.3); GFR ESTIMATE (CALCULATED) 33 mL/min/; GLUCOSE 141 mg/dL (70-99); POTASSIUM 2.9 MEQ/L (3.7-5.4); SODIUM 141 MEQ/L (136-147); UREA NITROGEN (BUN) 21 mg/dL (9-23)
[2017-09-10 08:11] LABS: MAGNESIUM 1.5 mg/dl (1.3-2.7)
[2017-09-10 08:31] VITALS: BP 120/60
[2017-09-10 08:32] LABS: HEMATOCRIT 22.5 % (36.0-46.0); HEMOGLOBIN 7.3 G/DL (11.9-15.5); MCH 29.3 PG (29.0-34.0); MCHC 32.4 G/DL (30.0-36.0); MCV 90.4 FL (83-99); PLATELET COUNT 169 K/uL (156-360); RBC DIS.WIDTH-CV 18.5 % (11.8-14.6); RBC DIS.WIDTH-SD 59.8 % (39-53); RED BLOOD COUNT 2.49 M/uL (3.80-5.20)
[2017-09-10 08:33] LABS: WHITE BLOOD COUNT 1.9 K/uL (4.1-10.2)
[2017-09-10 12:08] VITALS: BP 120/64
[2017-09-10 12:31] LABS: HEMATOCRIT 22.8 % (36.0-46.0); HEMOGLOBIN 7.3 G/DL (11.9-15.5); MCV 90.5 FL (83-99); PLATELET COUNT 164 K/uL (156-360); RBC DIS.WIDTH-CV 18.8 % (11.8-14.6); RBC DIS.WIDTH-SD 60.6 % (39-53); RED BLOOD COUNT 2.52 M/uL (3.80-5.20); WHITE BLOOD COUNT 3.1 K/uL (4.1-10.2)
[2017-09-10 16:37] VITALS: BP 108/68
[2017-09-10 18:19] VITALS: BP 124/67
[2017-09-10 18:38] VITALS: BP 117/67
[2017-09-10 20:05] VITALS: BP 137/66
[2017-09-11 01:13] VITALS: BP 126/63
[2017-09-11 02:41] LABS: HEMATOCRIT 27.7 % (36.0-46.0); MCH 29.6 PG (29.0-34.0); MCHC 33.6 G/DL (30.0-36.0); MCV 88.2 FL (83-99); PLATELET COUNT 208 K/uL (156-360); RBC DIS.WIDTH-CV 18.4 % (11.8-14.6); WHITE BLOOD COUNT 7.6 K/uL (4.1-10.2)
[2017-09-11 02:42] LABS: HEMOGLOBIN 9.3 G/DL (11.9-15.5); RED BLOOD COUNT 3.14 M/uL (3.80-5.20)
[2017-09-11 02:44] LABS: CHLORIDE 110 mEq/L (99-109); SODIUM 142 mEq/L (136-147)
[2017-09-11 02:45] LABS: POTASSIUM 3.5 mEq/L (3.7-5.4)
[2017-09-11 02:46] LABS: GLUCOSE 157 mg/dL (70-99)
[2017-09-11 02:50] LABS: CREATININE 2.2 mg/dL (0.6-1.3); GFR ESTIMATE (CALCULATED) 26 mL/min/
[2017-09-11 02:51] LABS: UREA NITROGEN (BUN) 23 mg/dL (9-23)
[2017-09-11 02:56] LABS: TROP-I INTERPRETATION NEGATIVE; TROPONIN-I < 0.01 ng/mL (0.0-0.30)
[2017-09-11 05:16] VITALS: BP 133/64
[2017-09-11 08:27] VITALS: BP 120/78
[2017-09-11 08:40] LABS: MAGNESIUM 1.5 mg/dL (1.3-2.7)
[2017-09-11 09:33] LABS: APPEARANCE CLOUDY ((CLEAR)); BILIRUBIN NEGATIVE; BLOOD SMALL; COLOR YELLOW ((YELLOW)); GLUCOSE (STRIP) 50; KETONES 20; LEUKOCYTES NEGATIVE; NITRITE NEGATIVE; PROTEIN (STRIP) 100; UROBILINOGEN 0.2 MG/DL (0.2-1.0)
[2017-09-11 10:04] LABS: BACTERIA 2+ /HPF; EPITHELIAL CELLS 1+ /HPF; HYALINE CASTS 0-5 /LPF; MUCUS NONE SEEN /LPF; RED BLOOD CELLS 0-5 /HPF (0-5); UCUL ADDED? YES; WHITE BLOOD CELLS 0-5 /HPF (0-5)
[2017-09-11 13:29] VITALS: BP 126/68
[2017-09-11 14:33] LABS: ALBUMIN 3.2 g/dL (3.2-4.8)
[2017-09-11 14:36] LABS: TOTAL PROTEIN 4.7 g/dL (6.4-8.3)
[2017-09-11 14:38] LABS: TOTAL BILIRUBIN 1.6 mg/dL (0.0-1.0)
[2017-09-11 14:39] LABS: ALKALINE PHOSPHATASE 56 IU/L (3-129)
[2017-09-11 14:41] LABS: AST (GOT) 32 IU/L (2-34)
[2017-09-11 14:42] LABS: ALT (GPT) 21 IU/L (3-49); DIRECT BILIRUBIN 1.2 mg/dL (0.0-0.3)
[2017-09-11 16:21] VITALS: BP 124/66
[2017-09-11 19:59] VITALS: BP 123/66
[2017-09-11 20:17] LABS: HEMATOCRIT 26.5 % (36.0-46.0); HEMOGLOBIN 8.7 G/DL (11.9-15.5)
[2017-09-11 21:53] LABS: INTER. NORMALIZED RATIO 2.8
[2017-09-11 22:09] LABS: PTT 52.6 SEC (25-37)
[2017-09-12 00:27] VITALS: BP 137/75
[2017-09-12 07:00] VITALS: BP 113/65
[2017-09-12 08:01] LABS: HEMATOCRIT 26.2 % (36.0-46.0); HEMOGLOBIN 8.5 G/DL (11.9-15.5); MCH 28.9 PG (29.0-34.0); MCHC 32.4 G/DL (30.0-36.0); MCV 89.1 FL (83-99); PLATELET COUNT 195 K/uL (156-360); RBC DIS.WIDTH-CV 19.2 % (11.8-14.6); RBC DIS.WIDTH-SD 61.7 % (39-53); RED BLOOD COUNT 2.94 M/uL (3.80-5.20)
[2017-09-12 08:17] VITALS: BP 120/85
[2017-09-12 08:36] LABS: ALBUMIN 2.5 G/DL (3.2-4.8); CHLORIDE 106 MEQ/L (99-109); CREATININE 2.4 MG/DL (0.6-1.3); GFR ESTIMATE (CALCULATED) 24 mL/min/; GLUCOSE 118 mg/dL (70-99); MAGNESIUM 1.7 mg/dl (1.3-2.7); PHOSPHORUS 1.9 mg/dL (2.5-4.9); POTASSIUM 3.9 MEQ/L (3.7-5.4); SODIUM 140 MEQ/L (136-147); UREA NITROGEN (BUN) 25 mg/dL (9-23)
[2017-09-12 08:57] LABS: BASOPHIL (%) 0.1 % (0-1); EOSINOPHIL (%) 0 % (0-5); IMMATURE GRANULOCYTE (%) 0.3 % (0.0-0.7); LYMPHOCYTE (%) 9.4 % (15-42); LYMPHOCYTE COUNT 0.8 K/uL (1.0-2.8); MONOCYTE (%) 1.9 % (3-12); MONOCYTE COUNT 0.2 K/uL (0-0.8); NEUTROPHIL (%) 88.3 % (45-76); NEUTROPHIL COUNT 7.1 K/uL (1.8-6.4)
[2017-09-12 15:30] LABS: HEMATOCRIT 26.5 % (36.0-46.0); HEMOGLOBIN 8.5 G/DL (11.9-15.5); MCV 90.4 FL (83-99)
[2017-09-12 16:59] VITALS: BP 100/64
[2017-09-12 20:31] VITALS: BP 117/70
[2017-09-13 00:25] VITALS: BP 109/62
[2017-09-13 04:21] VITALS: BP 105/64
[2017-09-13 08:07] LABS: BASOPHIL (%) 0.1 % (0-1); EOSINOPHIL (%) 0 % (0-5); HEMATOCRIT 26.4 % (36.0-46.0); HEMOGLOBIN 8.5 G/DL (11.9-15.5); IMMATURE GRANULOCYTE (%) 1.2 % (0.0-0.7); LYMPHOCYTE (%) 10.8 % (15-42); LYMPHOCYTE COUNT 0.9 K/uL (1.0-2.8); MCH 29.1 PG (29.0-34.0); MCHC 32.2 G/DL (30.0-36.0); MCV 90.4 FL (83-99); MONOCYTE (%) 2.9 % (3-12); MONOCYTE COUNT 0.2 K/uL (0-0.8); NEUTROPHIL COUNT 6.8 K/uL (1.8-6.4); PLATELET COUNT 176 K/uL (156-360); RBC DIS.WIDTH-CV 18.6 % (11.8-14.6); RBC DIS.WIDTH-SD 61.5 % (39-53); RED BLOOD COUNT 2.92 M/uL (3.80-5.20); WHITE BLOOD COUNT 8.1 K/uL (4.1-10.2)
[2017-09-13 08:30] LABS: ALBUMIN 2.3 G/DL (3.2-4.8); CHLORIDE 106 MEQ/L (99-109); CREATININE 2.5 MG/DL (0.6-1.3); GFR ESTIMATE (CALCULATED) 23 mL/min/; GLUCOSE 109 mg/dL (70-99); PHOSPHORUS 1.8 mg/dL (2.5-4.9); POTASSIUM 4.2 MEQ/L (3.7-5.4); SODIUM 139 MEQ/L (136-147); UREA NITROGEN (BUN) 28 mg/dL (9-23)
[2017-09-13 08:33] LABS: CHLORIDE 106 MEQ/L (99-109); CREATININE 2.6 MG/DL (0.6-1.3); GFR ESTIMATE (CALCULATED) 22 mL/min/; GLUCOSE 111 mg/dL (70-99); SODIUM 137 MEQ/L (136-147); UREA NITROGEN (BUN) 28 mg/dL (9-23)
[2017-09-13 08:57] VITALS: BP 110/62
[2017-09-13 11:32] VITALS: BP 146/73
[2017-09-13 20:24] VITALS: BP 98/50
[2017-09-13 23:57] VITALS: BP 113/51
[2017-09-14 04:32] VITALS: BP 113/61
[2017-09-14 08:30] VITALS: BP 142/82
[2017-09-14 08:44] LABS: ALBUMIN 2.1 G/DL (3.2-4.8); CHLORIDE 106 MEQ/L (99-109); POTASSIUM 4.6 MEQ/L (3.7-5.4); SODIUM 135 MEQ/L (136-147)
[2017-09-14 08:49] LABS: CREATININE 2.7 MG/DL (0.6-1.3); GFR ESTIMATE (CALCULATED) 21 mL/min/; GLUCOSE 139 mg/dL (70-99); PHOSPHORUS 1.4 mg/dL (2.5-4.9); UREA NITROGEN (BUN) 32 mg/dL (9-23)
[2017-09-14 09:52] LABS: HEMATOCRIT 30.2 % (36.0-46.0); HEMOGLOBIN 9.6 G/DL (11.9-15.5); MCH 29.1 PG (29.0-34.0); MCHC 31.8 G/DL (30.0-36.0); MCV 91.5 FL (83-99); RBC DIS.WIDTH-CV 17.8 % (11.8-14.6); WHITE BLOOD COUNT 11.3 K/uL (4.1-10.2)
[2017-09-14 09:53] LABS: PLATELET COUNT 253 K/uL (156-360)
[2017-09-14 10:21] LABS: ABS NEUTROPHIL COUNT 9.2; ANISOCYTOSIS 1+; ATYPICAL LYMPHOCYTE 4.3 %; BAND NEUTROPHILS 1.7 % (0-8.0); EOSINOPHIL ABS CT 0.1; EOSINOPHILS 0.9 % (0-5.0); LYMPHOCYTES 13.8 % (15.0-45.0); SEG.NEUTROPHILS 79.3 % (46.0-76.0)
[2017-09-14 12:21] VITALS: BP 138/72
[2017-09-14 19:37] LABS: STOOL OCCULT BLD 1ST SPECIMEN NEGATIVE
[2017-09-14 19:45] LABS: STOOL OCCULT BLD 1ST SPECIMEN NEGATIVE
[2017-09-14 20:03] VITALS: BP 126/79
[2017-09-14 23:42] VITALS: BP 126/79
[2017-09-15 03:58] VITALS: BP 124/79
[2017-09-15 07:21] VITALS: BP 118/69
[2017-09-15 08:26] LABS: HEMATOCRIT 29.2 % (36.0-46.0); HEMOGLOBIN 9.2 G/DL (11.9-15.5); MCH 28.8 PG (29.0-34.0); MCHC 31.5 G/DL (30.0-36.0); MCV 91.5 FL (83-99); PLATELET COUNT 222 K/uL (156-360); RBC DIS.WIDTH-CV 17.4 % (11.8-14.6); RBC DIS.WIDTH-SD 58.4 % (39-53); RED BLOOD COUNT 3.19 M/uL (3.80-5.20); WHITE BLOOD COUNT 10.4 K/uL (4.1-10.2)
[2017-09-15 08:50] LABS: ALBUMIN 1.8 G/DL (3.2-4.8); CHLORIDE 105 MEQ/L (99-109); DIRECT BILIRUBIN 0.7 mg/dL (0.0-0.3); MAGNESIUM 1.7 mg/dl (1.3-2.7); SODIUM 136 MEQ/L (136-147)
[2017-09-15 08:58] LABS: ALKALINE PHOSPHATASE 102 IU/L (3-129); ALT (GPT) 16 IU/L (3-49); AST (GOT) 11 IU/L (2-34); GFR ESTIMATE (CALCULATED) 18 mL/min/; PHOSPHORUS 1.2 mg/dL (2.5-4.9); TOTAL PROTEIN 3.9 G/DL (6.4-8.3); UREA NITROGEN (BUN) 34 mg/dL (9-23)
[2017-09-15 09:00] LABS: GLUCOSE 77 mg/dL (70-99)
[2017-09-15 10:59] VITALS: BP 126/74
[2017-09-15 16:32] VITALS: BP 123/22
[2017-09-15 20:40] VITALS: BP 110/68
[2017-09-16 00:25] VITALS: BP 113/73
[2017-09-16 04:33] VITALS: BP 99/54
[2017-09-16 07:22] LABS: HEMATOCRIT 24.9 % (36.0-46.0); HEMOGLOBIN 7.7 G/DL (11.9-15.5); MCH 28.6 PG (29.0-34.0); MCHC 30.9 G/DL (30.0-36.0); MCV 92.6 FL (83-99); PLATELET COUNT 187 K/uL (156-360); RBC DIS.WIDTH-CV 17.6 % (11.8-14.6); RBC DIS.WIDTH-SD 59.6 % (39-53); RED BLOOD COUNT 2.69 M/uL (3.80-5.20); WHITE BLOOD COUNT 7.3 K/uL (4.1-10.2)
[2017-09-16 07:42] LABS: ALKALINE PHOSPHATASE 75 IU/L (3-129); ALT (GPT) 11 IU/L (3-49); AST (GOT) 12 IU/L (2-34); DIRECT BILIRUBIN 0.5 mg/dL (0.0-0.3); TOTAL BILIRUBIN 0.8 MG/DL (0.0-1.0); TOTAL PROTEIN 3.6 G/DL (6.4-8.3)
[2017-09-16 07:47] LABS: CHLORIDE 105 MEQ/L (99-109); CREATININE 3.1 MG/DL (0.6-1.3); GFR ESTIMATE (CALCULATED) 18 mL/min/; GLUCOSE 63 mg/dL (70-99); POTASSIUM 3.7 MEQ/L (3.7-5.4); SODIUM 136 MEQ/L (136-147); UREA NITROGEN (BUN) 34 mg/dL (9-23)
[2017-09-16 07:49] LABS: PHOSPHORUS 2.6 mg/dL (2.5-4.9)
[2017-09-16 08:24] VITALS: BP 129/74
[2017-09-16 15:00] VITALS: BP 133/65
[2017-09-16 23:50] VITALS: BP 112/59
[2017-09-17 04:09] VITALS: BP 138/77
[2017-09-17 06:33] LABS: ALBUMIN 2.1 G/DL (3.2-4.8); CHLORIDE 105 MEQ/L (99-109); CREATININE 3.1 MG/DL (0.6-1.3); GFR ESTIMATE (CALCULATED) 18 mL/min/; GLUCOSE 66 mg/dL (70-99); MAGNESIUM 1.7 mg/dl (1.3-2.7); PHOSPHORUS 2.8 mg/dL (2.5-4.9); POTASSIUM 3.2 MEQ/L (3.7-5.4); SODIUM 139 MEQ/L (136-147); UREA NITROGEN (BUN) 35 mg/dL (9-23)
[2017-09-17 08:14] VITALS: BP 108/61
[2017-09-17 12:39] VITALS: BP 108/68
[2017-09-17 20:17] VITALS: BP 112/61
[2017-09-18] VITALS (7 sets, daily range): BP systolic 103–111; BP diastolic 58–76
[2017-09-18 06:09] LABS: HEMATOCRIT 24.9 % (36.0-46.0); MCHC 32.1 G/DL (30.0-36.0); MCV 93.3 FL (83-99); PLATELET COUNT 171 K/uL (156-360); RBC DIS.WIDTH-CV 17.2 % (11.8-14.6); RBC DIS.WIDTH-SD 57.9 % (39-53); RED BLOOD COUNT 2.67 M/uL (3.80-5.20); WHITE BLOOD COUNT 12.9 K/uL (4.1-10.2)
[2017-09-18 06:17] LABS: CHLORIDE 107 MEQ/L (99-109); CREATININE 3.1 MG/DL (0.6-1.3); GFR ESTIMATE (CALCULATED) 18 mL/min/; GLUCOSE 79 mg/dL (70-99); MAGNESIUM 1.7 mg/dl (1.3-2.7); POTASSIUM 3.3 MEQ/L (3.7-5.4); SODIUM 139 MEQ/L (136-147); UREA NITROGEN (BUN) 35 mg/dL (9-23)
[2017-09-18 06:20] LABS: ALBUMIN 2.4 G/DL (3.2-4.8); CHLORIDE 107 MEQ/L (99-109); CREATININE 3.1 MG/DL (0.6-1.3); GFR ESTIMATE (CALCULATED) 18 mL/min/; GLUCOSE 80 mg/dL (70-99); PHOSPHORUS 2.9 mg/dL (2.5-4.9); POTASSIUM 3.3 MEQ/L (3.7-5.4); SODIUM 139 MEQ/L (136-147); UREA NITROGEN (BUN) 35 mg/dL (9-23)
[2017-09-18 10:09] LABS: PHOSPHORUS 3.1 mg/dL (2.5-4.9)
[2017-09-19 03:40] VITALS: BP 112/68
[2017-09-19 07:13] LABS: CHLORIDE 107 MEQ/L (99-109); CREATININE 3.2 MG/DL (0.6-1.3); GFR ESTIMATE (CALCULATED) 17 mL/min/; SODIUM 140 MEQ/L (136-147); UREA NITROGEN (BUN) 32 mg/dL (9-23)
[2017-09-19 07:14] LABS: GLUCOSE 107 mg/dL (70-99); MAGNESIUM 2.1 mg/dl (1.3-2.7)
[2017-09-19 08:15] LABS: PHOSPHORUS 2.9 mg/dL (2.5-4.9)
[2017-09-19 08:28] VITALS: BP 90/54
[2017-09-19 12:10] VITALS: BP 120/64
[2017-09-19 16:18] VITALS: BP 122/68
[2017-09-19 20:30] VITALS: BP 126/60
[2017-09-19 23:53] VITALS: BP 112/57
[2017-09-20] VITALS (8 sets, daily range): BP systolic 69–122; BP diastolic 50–68
[2017-09-20 07:16] LABS: CHLORIDE 109 MEQ/L (99-109); CREATININE 3.2 MG/DL (0.6-1.3); GFR ESTIMATE (CALCULATED) 17 mL/min/; GLUCOSE 91 mg/dL (70-99); POTASSIUM 3.5 MEQ/L (3.7-5.4); SODIUM 140 MEQ/L (136-147); UREA NITROGEN (BUN) 33 mg/dL (9-23)
[2017-09-20 07:51] LABS: HEMATOCRIT 27.3 % (36.0-46.0); HEMOGLOBIN 8.8 G/DL (11.9-15.5); MCHC 32.2 G/DL (30.0-36.0); MCV 93.2 FL (83-99); NRBC (%) 0.1 /100 WBC (0-0); PLATELET COUNT 213 K/uL (156-360); RBC DIS.WIDTH-CV 17.4 % (11.8-14.6); RED BLOOD COUNT 2.93 M/uL (3.80-5.20); WHITE BLOOD COUNT 14.2 K/uL (4.1-10.2)
[2017-09-20 12:16] LABS: C-REACTIVE PROTEIN 182.4 MG/L (0-10); CREATINE KINASE 12 IU/L (1-294)
[2017-09-20 13:40] LABS: INTER. NORMALIZED RATIO 1.5
[2017-09-21] VITALS (30 sets, daily range): BP systolic 43–106; BP diastolic 30–77
[2017-09-21 00:55] LABS: BASE EXCESS -6.6 mEq/L (-3 to +3); BICARBONATE 17.9 mEq/L (22-26); CARBOXY HGB 2.2 % (0-5); FI02 21 %; METHEMOGLOBIN 1.9 % (0-1.5); PCO2 31 mm Hg (35-45); PO2 99 mm Hg (80-100); SITE LR; pH 7.37 (7.35-7.45)
[2017-09-21 05:19] LABS: BASE EXCESS -7.1 mEq/L (-3 to +3); BICARBONATE 17.5 mEq/L (22-26); CARBOXY HGB 1.9 % (0-5); FI02 21 %; METHEMOGLOBIN 1.8 % (0-1.5); PCO2 31 mm Hg (35-45); PO2 103 mm Hg (80-100); SITE LR; pH 7.36 (7.35-7.45)
[2017-09-21 05:30] LABS: HEMATOCRIT 28.3 % (36.0-46.0); HEMOGLOBIN 8.8 G/DL (11.9-15.5); MCH 28.9 PG (29.0-34.0); MCHC 31.1 G/DL (30.0-36.0); MCV 92.8 FL (83-99); PLATELET COUNT 261 K/uL (156-360); RBC DIS.WIDTH-CV 18.1 % (11.8-14.6); RBC DIS.WIDTH-SD 57.6 % (39-53); RED BLOOD COUNT 3.05 M/uL (3.80-5.20); WHITE BLOOD COUNT 18.8 K/uL (4.1-10.2)
[2017-09-21 06:02] LABS: BASOPHIL (%) 0.3 % (0-1); BASOPHIL COUNT 0.1 K/uL (0-0.1); EOSINOPHIL (%) 0.9 % (0-5); EOSINOPHIL COUNT 0.2 K/uL (0-0.3); IMMATURE GRANULOCYTE (%) 2.9 % (0.0-0.7); LYMPHOCYTE (%) 13.2 % (15-42); LYMPHOCYTE COUNT 2.5 K/uL (1.0-2.8); MONOCYTE (%) 2.1 % (3-12); MONOCYTE COUNT 0.4 K/uL (0-0.8); NEUTROPHIL (%) 80.6 % (45-76); NEUTROPHIL COUNT 15.2 K/uL (1.8-6.4)
[2017-09-21 06:34] LABS: PREALBUMIN < 10.0 mg/dL (10-40)
[2017-09-21 06:56] LABS: CHLORIDE 109 MEQ/L (99-109); CREATININE 3.2 MG/DL (0.6-1.3); GFR ESTIMATE (CALCULATED) 17 mL/min/; GLUCOSE 90 mg/dL (70-99); MAGNESIUM 1.8 mg/dl (1.3-2.7); POTASSIUM 3.2 MEQ/L (3.7-5.4); SODIUM 142 MEQ/L (136-147); UREA NITROGEN (BUN) 32 mg/dL (9-23)
[2017-09-22] VITALS (19 sets, daily range): BP systolic 77–122; BP diastolic 45–87
[2017-09-22 06:08] LABS: CHLORIDE 112 MEQ/L (99-109); CREATININE 3.1 MG/DL (0.6-1.3); GFR ESTIMATE (CALCULATED) 18 mL/min/; GLUCOSE 80 mg/dL (70-99); MAGNESIUM 1.9 mg/dl (1.3-2.7); POTASSIUM 3.1 MEQ/L (3.7-5.4); SODIUM 144 MEQ/L (136-147); UREA NITROGEN (BUN) 29 mg/dL (9-23)
[2017-09-23] VITALS (25 sets, daily range): BP systolic 79–125; BP diastolic 49–80
[2017-09-23 06:04] LABS: CHLORIDE 114 MEQ/L (99-109); GFR ESTIMATE (CALCULATED) 18 mL/min/; MAGNESIUM 2.1 mg/dl (1.3-2.7); POTASSIUM 3.2 MEQ/L (3.7-5.4); SODIUM 146 MEQ/L (136-147); UREA NITROGEN (BUN) 31 mg/dL (9-23)
[2017-09-23 06:05] LABS: GLUCOSE 138 mg/dL (70-99)
[2017-09-23 20:12] LABS: BASE EXCESS -8.1 mEq/L (-3 to +3); BICARBONATE 16.7 mEq/L (22-26); METHEMOGLOBIN 1.6 % (0-1.5); PCO2 31 mm Hg (35-45); PO2 86 mm Hg (80-100); pH 7.34 (7.35-7.45)
[2017-09-23 20:13] LABS: COMMENTS - BLOOD GASES C+; FI02 21 %; SITE RR; TOTAL RESP RATE 16 resp/min
[2017-09-23 20:15] LABS: ALBUMIN 2.6 G/DL (3.2-4.8); ALKALINE PHOSPHATASE 101 IU/L (3-129); ALT (GPT) 9 IU/L (3-49); AST (GOT) 13 IU/L (2-34); CHLORIDE 115 MEQ/L (99-109); GFR ESTIMATE (CALCULATED) 18 mL/min/; GLUCOSE 127 mg/dL (70-99); MAGNESIUM 1.9 mg/dl (1.3-2.7); POTASSIUM 2.7 MEQ/L (3.7-5.4); SODIUM 146 MEQ/L (136-147); TOTAL BILIRUBIN 1.3 MG/DL (0.0-1.0); TOTAL PROTEIN 4.2 G/DL (6.4-8.3); UREA NITROGEN (BUN) 28 mg/dL (9-23)
[2017-09-23 20:19] LABS: PHOSPHORUS 1.9 mg/dL (2.5-4.9)
[2017-09-24] VITALS (28 sets, daily range): BP systolic 68–123; BP diastolic 33–76
[2017-09-24 07:24] LABS: HEMATOCRIT 27.9 % (36.0-46.0); HEMOGLOBIN 8.5 G/DL (11.9-15.5); MCH 29.6 PG (29.0-34.0); MCHC 30.5 G/DL (30.0-36.0); NRBC (%) 1.1 /100 WBC (0-0); PLATELET COUNT 195 K/uL (156-360); RBC DIS.WIDTH-CV 19.2 % (11.8-14.6); RBC DIS.WIDTH-SD 61.6 % (39-53); RED BLOOD COUNT 2.87 M/uL (3.80-5.20); WHITE BLOOD COUNT 11.9 K/uL (4.1-10.2)
[2017-09-24 07:37] LABS: MCV 97.2 FL (83-99)
[2017-09-24 13:24] LABS: CHLORIDE 115 MEQ/L (99-109); CREATININE 2.9 MG/DL (0.6-1.3); GFR ESTIMATE (CALCULATED) 19 mL/min/; POTASSIUM 3.2 MEQ/L (3.7-5.4); SODIUM 148 MEQ/L (136-147); UREA NITROGEN (BUN) 27 mg/dL (9-23)
[2017-09-24 13:26] LABS: GLUCOSE 90 mg/dL (70-99); MAGNESIUM 2.2 mg/dl (1.3-2.7)
[2017-09-24 16:45] LABS: HEMATOCRIT 20.5 % (36.0-46.0); MCH 29.5 PG (29.0-34.0); MCHC 30.2 G/DL (30.0-36.0); MCV 97.6 FL (83-99); NRBC (%) 0.4 /100 WBC (0-0); RBC DIS.WIDTH-CV 19.4 % (11.8-14.6); RBC DIS.WIDTH-SD 62.4 % (39-53); WHITE BLOOD COUNT 16.4 K/uL (4.1-10.2)
[2017-09-24 16:48] LABS: HEMOGLOBIN 6.2 G/DL (11.9-15.5)
[2017-09-24 16:53] LABS: INTER. NORMALIZED RATIO 2.3
[2017-09-24 16:59] LABS: PTT 83.5 SEC (25-37)
[2017-09-24 17:01] LABS: ABS NEUTROPHIL COUNT 13.9; ANISOCYTOSIS 2+; ATYPICAL LYMPHOCYTE 0.9 %; BAND NEUTROPHILS 43.3 % (0-8.0); EOSINOPHIL ABS CT 0; HYPOCHROMASIA 2+; METAMYELOCYTES 6.2 %; MICROCYTOSIS 2+; PLAT.SUFFICIENCY ADEQUATE; PLATELET COUNT 137 K/uL (156-360); SCHISTOCYTES 1+; SEG.NEUTROPHILS 41.6 % (46.0-76.0)
[2017-09-24 17:10] LABS: ALBUMIN 3.4 G/DL (3.2-4.8); CHLORIDE 118 MEQ/L (99-109); CREATININE 2.7 MG/DL (0.6-1.3); GFR ESTIMATE (CALCULATED) 21 mL/min/; GLUCOSE 109 mg/dL (70-99); POTASSIUM 3.3 MEQ/L (3.7-5.4); SODIUM 147 MEQ/L (136-147); UREA NITROGEN (BUN) 24 mg/dL (9-23)
[2017-09-24 20:48] LABS: BASE EXCESS -12.9 mEq/L (-3 to +3); BICARBONATE 12.3 mEq/L (22-26); CARBOXY HGB 2.2 % (0-5); COMMENTS - BLOOD GASES C+; DEVICE RA; METHEMOGLOBIN 1.3 % (0-1.5); PCO2 25 mm Hg (35-45); PO2 66 mm Hg (80-100); SITE LR
[2017-09-24 23:30] LABS: ALBUMIN 3.9 g/dL (3.2-4.8); CHLORIDE 115 mEq/L (99-109); POTASSIUM 3.5 mEq/L (3.7-5.4); SODIUM 148 mEq/L (136-147)
[2017-09-24 23:31] LABS: MAGNESIUM 2.2 mg/dL (1.3-2.7)
[2017-09-24 23:33] LABS: GLUCOSE 156 mg/dL (70-99)
[2017-09-24 23:36] LABS: CREATININE 2.4 mg/dL (0.6-1.3); GFR ESTIMATE (CALCULATED) 24 mL/min/; PHOSPHORUS 1.7 mg/dL (2.5-4.9)
[2017-09-24 23:37] LABS: UREA NITROGEN (BUN) 22 mg/dL (9-23)
[2017-09-25] VITALS (24 sets, daily range): BP systolic 75–135; BP diastolic 50–116
[2017-09-25 06:49] LABS: BASOPHIL (%) 0.1 % (0-1); EOSINOPHIL (%) 0 % (0-5); HEMATOCRIT 21.5 % (36.0-46.0); HEMOGLOBIN 7.2 G/DL (11.9-15.5); IMMATURE GRANULOCYTE (%) 0.8 % (0.0-0.7); LYMPHOCYTE (%) 12.2 % (15-42); LYMPHOCYTE COUNT 1.7 K/uL (1.0-2.8); MCHC 33.5 G/DL (30.0-36.0); MONOCYTE (%) 1.3 % (3-12); MONOCYTE COUNT 0.2 K/uL (0-0.8); NEUTROPHIL (%) 85.6 % (45-76); NEUTROPHIL COUNT 11.6 K/uL (1.8-6.4); NRBC (%) 0.4 /100 WBC (0-0); PLATELET COUNT 132 K/uL (156-360); RBC DIS.WIDTH-CV 19.1 % (11.8-14.6); RBC DIS.WIDTH-SD 54.7 % (39-53); WHITE BLOOD COUNT 13.6 K/uL (4.1-10.2)
[2017-09-25 06:51] LABS: ALKALINE PHOSPHATASE 75 IU/L (3-129); ALT (GPT) 7 IU/L (3-49); AST (GOT) 12 IU/L (2-34); CHLORIDE 107 MEQ/L (99-109); CREATININE 1.5 MG/DL (0.6-1.3); GFR ESTIMATE (CALCULATED) 41 mL/min/; GLUCOSE 165 mg/dL (70-99); MAGNESIUM 2.2 mg/dl (1.3-2.7); PHOSPHORUS < 1.0 mg/dL (2.5-4.9); POTASSIUM 3.2 MEQ/L (3.7-5.4); SODIUM 148 MEQ/L (136-147); TOTAL PROTEIN 5.2 G/DL (6.4-8.3); UREA NITROGEN (BUN) 14 mg/dL (9-23)
[2017-09-25 06:53] LABS: MCV 89.6 FL (83-99)
[2017-09-25 07:31] LABS: ABS NEUTROPHIL COUNT 11.9; ANISOCYTOSIS 2+; ATYPICAL LYMPHOCYTE 1.7 %; BASOPH.STIPPLING 1+; BASOPHILS 0.9 %; EOSINOPHIL ABS CT 0; HYPOCHROMASIA 1+; LYMPHOCYTES 8.7 % (15.0-45.0); MACROCYTES 1+; MICROCYTOSIS 2+; MONOCYTES 0.9 % (0-9.0); PLAT.SUFFICIENCY DECREASED; TARGET CELLS 1+
[2017-09-25 07:37] LABS: BAND NEUTROPHILS 16.5 % (0-8.0); SEG.NEUTROPHILS 71.3 % (46.0-76.0)
[2017-09-25 13:26] LABS: GLUCOSE 207 mg/dL (70-99)
[2017-09-25 16:22] LABS: ALBUMIN 4.8 g/dL (3.2-4.8)
[2017-09-25 16:23] LABS: CHLORIDE 105 mEq/L (99-109); POTASSIUM 3.5 mEq/L (3.7-5.4); SODIUM 145 mEq/L (136-147)
[2017-09-25 16:29] LABS: UREA NITROGEN (BUN) 7 mg/dL (9-23)
[2017-09-25 16:30] LABS: CREATININE 0.8 mg/dL (0.6-1.3); GFR ESTIMATE (CALCULATED) > 59 mL/min/; GLUCOSE 117 mg/dL (70-99)
[2017-09-25 17:45] LABS: PHOSPHORUS < 1.0 mg/dL (2.5-4.9)
[2017-09-25 20:43] LABS: INTER. NORMALIZED RATIO 2.2
[2017-09-25 20:49] LABS: PTT 53.5 SEC (25-37)
[2017-09-26] VITALS (24 sets, daily range): BP systolic 66–147; BP diastolic 0–92
[2017-09-26 04:47] LABS: BASE EXCESS -8.6 mEq/L (-3 to +3); METHEMOGLOBIN 1.7 % (0-1.5); PO2 66 mm Hg (80-100); pH 7.34 (7.35-7.45)
[2017-09-26 04:48] LABS: BICARBONATE 16.2 mEq/L (22-26); COMMENTS - BLOOD GASES C+; DEVICE VENT; FI02 80 %; INSPIRATION TIME 0.9 seconds; MECHANICAL RATE 24 resp/min; MODE ACVC+; PCO2 30 mm Hg (35-45); PEEP 5 CM/H20; SITE RR; TIDAL VOLUME 450 ML; TOTAL RESP RATE 33 resp/min
[2017-09-26 05:27] LABS: HEMATOCRIT 26.6 % (36.0-46.0); HEMOGLOBIN 8.7 G/DL (11.9-15.5); MCH 30.1 PG (29.0-34.0); MCHC 32.7 G/DL (30.0-36.0); NRBC (%) 3.7 /100 WBC (0-0); PLATELET COUNT 142 K/uL (156-360); RBC DIS.WIDTH-CV 20.4 % (11.8-14.6); RBC DIS.WIDTH-SD 58.7 % (39-53); WHITE BLOOD COUNT 9.9 K/uL (4.1-10.2)
[2017-09-26 05:44] LABS: ALBUMIN 4.4 G/DL (3.2-4.8); CHLORIDE 101 MEQ/L (99-109); CREATININE 0.6 MG/DL (0.6-1.3); GFR ESTIMATE (CALCULATED) > 59 mL/min/; GLUCOSE 110 mg/dL (70-99); PHOSPHORUS 1.3 mg/dL (2.5-4.9); POTASSIUM 4.1 MEQ/L (3.7-5.4); SODIUM 139 MEQ/L (136-147); UREA NITROGEN (BUN) 3 mg/dL (9-23)
[2017-09-26 05:58] LABS: ABS NEUTROPHIL COUNT 8.5; ANISOCYTOSIS 2+; ATYPICAL LYMPHOCYTE 0.9 %; BAND NEUTROPHILS 7.3 % (0-8.0); BASOPH.STIPPLING 1+; BURR CELLS 2+; EOSINOPHIL ABS CT 0; HEMATOLOGY COMMENT 1 SN; LYMPHOCYTES 11.8 % (15.0-45.0); MACROCYTES 1+; METAMYELOCYTES 1.8 %; MICROCYTOSIS 1+; NUCLEATED RBC'S 6.4; POIKILOCYTOSIS 2+; POLYCHROMASIA 1+; SEG.NEUTROPHILS 78.2 % (46.0-76.0); TOX.VACUOLIZATION 2+
[2017-09-26 06:04] LABS: RED BLOOD COUNT 2.89 M/uL (3.80-5.20)
[2017-09-26 22:51] LABS: HEMATOCRIT 30.2 % (36.0-46.0); HEMOGLOBIN 9.2 G/DL (11.9-15.5); MCHC 30.5 G/DL (30.0-36.0); MCV 101.7 FL (83-99); NRBC (%) 7.7 /100 WBC (0-0); PLATELET COUNT 140 K/uL (156-360); RBC DIS.WIDTH-CV 21.5 % (11.8-14.6); RBC DIS.WIDTH-SD 70.2 % (39-53); RED BLOOD COUNT 2.97 M/uL (3.80-5.20); WHITE BLOOD COUNT 17.3 K/uL (4.1-10.2)
[2017-09-26 23:20] LABS: ALBUMIN 5.2 G/DL (3.2-4.8); CARBON DIOXIDE (BICARBONATE) < 10.0 MEQ/L (20-31); CHLORIDE 99 MEQ/L (99-109); CREATININE 0.5 MG/DL (0.6-1.3); GFR ESTIMATE (CALCULATED) > 59 mL/min/; GLUCOSE 41 mg/dL (70-99); POTASSIUM 4.9 MEQ/L (3.7-5.4); SODIUM 137 MEQ/L (136-147); TOTAL BILIRUBIN 2.2 MG/DL (0.0-1.0); UREA NITROGEN (BUN) 2 mg/dL (9-23)
[2017-09-26 23:21] LABS: ALKALINE PHOSPHATASE 196 IU/L (3-129); ALT (GPT) 20 IU/L (3-49); AST (GOT) 74 IU/L (2-34); TOTAL PROTEIN 6.6 G/DL (6.4-8.3)
[2017-09-27] VITALS (10 sets, daily range): BP systolic 58–130; BP diastolic 00–80
[2017-09-27 05:03] LABS: CARBOXY HGB 1.5 % (0-5); COMMENTS - BLOOD GASES C+; DEVICE VENT; FI02 90 %; MECHANICAL RATE 22 resp/min; METHEMOGLOBIN 1.8 % (0-1.5); MODE ACVC+; PCO2 32 mm Hg (35-45); PO2 153 mm Hg (80-100); SITE LR; TOTAL RESP RATE 28 resp/min; pH < 6.92 (7.35-7.45)
[2017-09-27 05:04] LABS: CONTINUOUS POS AIRWAY PRESSURE 12 cm H2O; INSPIRATION TIME 0.9 seconds; TIDAL VOLUME 500 ML
[2017-09-27 06:36] LABS: HEMATOCRIT 29.7 % (36.0-46.0); HEMOGLOBIN 8.3 G/DL (11.9-15.5); MCH 29.4 PG (29.0-34.0); MCHC 27.9 G/DL (30.0-36.0); MCV 105.3 FL (83-99); PLATELET COUNT 118 K/uL (156-360); RBC DIS.WIDTH-CV 21.1 % (11.8-14.6); RBC DIS.WIDTH-SD 73.3 % (39-53); RED BLOOD COUNT 2.82 M/uL (3.80-5.20); WHITE BLOOD COUNT 14.6 K/uL (4.1-10.2)
[2017-09-27 07:09] LABS: ABS NEUTROPHIL COUNT 13.4; ANISOCYTOSIS 2+; BAND NEUTROPHILS 12.6 % (0-8.0); EOSINOPHIL ABS CT 0; LYMPHOCYTES 7.4 % (15.0-45.0); MACROCYTES 1+; MICROCYTOSIS 1+; MYELOCYTES 1.1 %; NUCLEATED RBC'S 6.3; PLAT.SUFFICIENCY DECREASED; POIKILOCYTOSIS 1+; SEG.NEUTROPHILS 78.9 % (46.0-76.0); TEAR DROP CELLS 1+; TOX.VACUOLIZATION 2+
[2017-09-27 07:17] LABS: ALBUMIN 4.4 G/DL (3.2-4.8); CHLORIDE 99 MEQ/L (99-109); CREATININE 0.4 MG/DL (0.6-1.3); GFR ESTIMATE (CALCULATED) > 59 mL/min/; POTASSIUM 4.6 MEQ/L (3.7-5.4); SODIUM 139 MEQ/L (136-147); UREA NITROGEN (BUN) 2 mg/dL (9-23)
[2017-09-27 07:26] LABS: CARBON DIOXIDE (BICARBONATE) < 10.0 MEQ/L (20-31); GLUCOSE 182 mg/dL (70-99)
[2017-09-27 12:45] LABS: GLUCOSE 9 mg/dL (70-99)
== END 2017-09-27 19:04 | DRG 871 ==
LOC: EME → EDBD 01:37 → EDOF 06:31 → 4WEST 06:31 → ENRESERV 06:54 → CANRESERV 06:54 → EDOF 07:32 → ENRESERV 07:32 → 4EAST 08:25 → ENRESERV 18:56 → 4WEST 19:40 → ENRESERV 09-08 14:40 → 3EAST 09-08 19:53 → ENRESERV 09-20 18:17 → 4WEST 09-20 20:05
PROVIDERS: Emergency Medicine; Hospitalist; Internal Medicine; Internal Medicine Critical Care Medicine; Internal Medicine Nephrology; Obstetrics & Gynecology; Physician Assistant; Specialist; Surgery
DX: A41.9 Sepsis, unspecified organism (principal); R65.21 Severe sepsis with septic shock; L89.159 Pressure ulcer of sacral region, unspecified stage; K55.069 Acute infarction of intestine, part and extent unspecified; N17.0 Acute kidney failure with tubular necrosis; J18.9 Pneumonia, unspecified organism; L98.429 Non-pressure chronic ulcer of back with unspecified severity; L89.319 Pressure ulcer of right buttock, unspecified stage; N39.0 Urinary tract infection, site not specified; E66.2 Morbid (severe) obesity with alveolar hypoventilation; N18.9 Chronic kidney disease, unspecified; F32.9 Major depressive disorder, single episode, unspecified; R53.2 Functional quadriplegia; E11.65 Type 2 diabetes mellitus with hyperglycemia; E11.622 Type 2 diabetes mellitus with other skin ulcer; E11.22 Type 2 diabetes mellitus with diabetic chronic kidney disease; M32.9 Systemic lupus erythematosus, unspecified; I12.9 Hypertensive chronic kidney disease with stage 1 through stage 4 chronic kidney disease, or unspecified chronic kidney disease; M86.9 Osteomyelitis, unspecified; G89.29 Other chronic pain; B37.89 Other sites of candidiasis; L51.2 Toxic epidermal necrolysis [Lyell]; D63.1 Anemia in chronic kidney disease; D62 Acute posthemorrhagic anemia; J98.11 Atelectasis; J45.909 Unspecified asthma, uncomplicated; E83.39 Other disorders of phosphorus metabolism; E77.8 Other disorders of glycoprotein metabolism; B37.0 Candidal stomatitis; L51.1 Stevens-Johnson syndrome; E87.2 Acidosis; D63.8 Anemia in other chronic diseases classified elsewhere; G43.909 Migraine, unspecified, not intractable, without status migrainosus; Z68.45 Body mass index [BMI] 70 or greater, adult; F41.9 Anxiety disorder, unspecified; E27.40 Unspecified adrenocortical insufficiency; D72.819 Decreased white blood cell count, unspecified; E87.8 Other disorders of electrolyte and fluid balance, not elsewhere classified; E88.09 Other disorders of plasma-protein metabolism, not elsewhere classified; T68.XXXA Hypothermia, initial encounter; K76.0 Fatty (change of) liver, not elsewhere classified; N31.9 Neuromuscular dysfunction of bladder, unspecified; D17.9 Benign lipomatous neoplasm, unspecified; T50.8X5A Adverse effect of diagnostic agents, initial encounter; L23.9 Allergic contact dermatitis, unspecified cause; R04.2 Hemoptysis; E87.6 Hypokalemia; E86.9 Volume depletion, unspecified; M72.9 Fibroblastic disorder, unspecified; R04.0 Epistaxis; J80 Acute respiratory distress syndrome; E83.42 Hypomagnesemia; E87.70 Fluid overload, unspecified; S80.829A Blister (nonthermal), unspecified lower leg, initial encounter; R13.10 Dysphagia, unspecified; E11.69 Type 2 diabetes mellitus with other specified complication; T80.219A Unspecified infection due to central venous catheter, initial encounter; D68.9 Coagulation defect, unspecified; H04.123 Dry eye syndrome of bilateral lacrimal glands; K14.0 Glossitis; J98.4 Other disorders of lung; K12.30 Oral mucositis (ulcerative), unspecified; Q43.7 Persistent cloaca; K21.9 Gastro-esophageal reflux disease without esophagitis; Z90.49 Acquired absence of other specified parts of digestive tract; Z87.01 Personal history of pneumonia (recurrent); Z88.6 Allergy status to analgesic agent; Z87.440 Personal history of urinary (tract) infections; Z86.19 Personal history of other infectious and parasitic diseases; Z74.01 Bed confinement status; Z72.0 Tobacco use; Z79.899 Other long term (current) drug therapy
CPT/HCPCS: 36600; 71045; 73502; 73610; 73701; 74018; 74176; 74177; 80048; 80048 91; 80053; 80069; 80076; 80170; 80202; 81003; 82248; 82272; 82330; 82550; 82570; 82607; 82728; 82746; 82800; 82803; 82947 91; 82948; 83090 90; 83516 90; 83540; 83605; 83690; 83735; 83880; 83921 90; 84100; 84132 91; 84134; 84145 90; 84300; 84466; 84484; 84999; 85014; 85018; 85025; 85025 91; 85027; 85597 90; 85610; 85613 90; 85651; 85652; 85730; 85730 90; 86021 90; 86038; 86140; 86141; 86147 90; 86200 90; 86215 90; 86235; 86255 90; 86256 90; 86850; 86900; 86901; 86920; 87040; 87070; 87075; 87076; 87077; 87081; 87086; 87106; 87185; 87186; 87205; 87449; 87493; 87641; 89190; 92526 GN; 92610 GN; 93005; 93306; 93970; 94002; 94003; 94640; 94640 76; 94667; 94668; 94760; 94799; 97530 GO; 97530 GP; 99202; 99281; 99285; A6212; A6260; C1751; C1788; C9113; J0692; J1170; J1200; J1450; J1580; J1644; J1650; J1720; J1815; J1885; J1940; J2020; J2060; J2248; J2250; J2270; J2405; J2543; J2704; J2765; J3010; J3370; J3475; J3480; J7030; J7040; J7050; J7070; J7120; P9016; P9045; P9047; S0028; S0030; S0073